=== PATIENT | female | born 1995 | race Caucasian/White ===

== ENCOUNTER 2023-06-23 16:35 | Emergency (ER) | payer BC, SELFPAY ==
--- NOTE | ~2023-06-23 | XR_ITS ---
EXAMINATION: XR chest 2V DATE: 06/23/2023 17:02 INDICATION: Cough TECHNIQUE: PA and lateral views of the chest were obtained. COMPARISON: None FINDINGS: The lungs are clear with no focal airspace opacities, pulmonary edema, pleural effusion or pneumothor ax. The cardiomediastinal silhouette is normal. Visualized bones and soft tissues are unremarkable. IMPRESSION: 1. No acute cardiopulmonary disease. Reviewed, dictated and finalized at location A. COUNTER [employer] WRAPPER
--- NOTE | 2023-06-23 16:45 | ED.URI ---
HPI - URI/Sore Throat General Chief Complaint: Upper Respiratory Infection Stated Complaint: Cough/Fever Time Seen by Provider: 06/23/23 16:50 Source: patient Mode of arrival: ambulatory Limitations: no limitations History of Present Illness HPI Narrative: Alicia is a 28-year-old female patient presenting to the clinic today with complaints coughing and congestion for 1 week. Reports she is coughing up some green phlegm. States she felt somewhat feverish yesterday. Denies any chest pain but does have some mild shortness of breath. She is currently . MD elicited complaint: cough and nasal congestion Related Data Home Medications Medication Instructions Recorded Confirmed etonogestrel 0.12 mg-ethinyl vag ring vaginal 06/23/23 estradiol 0.015 mg/24 hr vaginal ring (EluRyng) Allergies Allergy/AdvReac Type Severity Reaction Status Date / Time naproxen Allergy Unknown Rash Verified 06/23/23 16:38 Penicillins Allergy Hives Verified 06/23/23 16:38 Review of Systems Review of Systems: Pertinent positives per HPI. Patient denies any fever, chills, rash, headache, visual changes, dizziness, shortness of breath, chest pain, palpitations, nausea, vomiting, diarrhea, constipation, abdominal pain, or any urinary issues. [facility] Past Medical History Medical History Asthma Depression Headache Migraine Nausea and vomiting in adult Psychiatric disorder Social History Social History Smoking status: Never smoker Gender identity (if verbalized by the patient): Female Comments At the time of my signature, I reviewed and agree with the nursing past medical, surgical, social, and family history. There is no relevant family history pertinent to the patient complaint. Exam Narrative: General: Well-developed, well nourished, in no apparent distress Head: Normocephalic, atraumatic Eyes: Pupils equally round and reactive to light bilaterally, EOM intact, sclera and conjunctive clear, no discharge, lids normal Ears: TMs intact and clear, ear canals clear, no drainage, grossly hearing normal. Nose: Nares patent, clear nasal discharge, mild inflammation, no sinus tenderness. Mouth: Oral pharynx without lesions or masses, good dentition, MMM. Neck: Supple, trachea midline, no enlargement of anterior or posterior cervical nodes, no thyroid masses or goiter palpable. Cardio: Regular rate and rhythm, s1 and s2 normal, no murmur appreciated. Resp: Clear to auscultation bilaterally, no rhonchi, rales, wheezing or rubs Course Course Emergency Course: Portions of this record may have been created with voice recognition software. Level of Care: Express Care Visit Vital Signs Vital signs: Vital signs reviewed MDM - URI/Sore Throat MDM Narrative Medical decision making narrative: At the time of visit patient is resting comfortably on the exam table. Patient appears to be nontoxic. Diagnostics: Chest x-rays negative for any acute cardiopulmonary process. Plan: I suspect patient has URI with cough and congestion. Prescription for prednisone was sent to the pharmacy. Supportive measures were discussed with the patient and they voiced understanding discharge instructions and agrees to treatment plan. Return precautions reviewed Differential Diagnosis Differential diagnosis: Likely upper respiratory infection, otitis media, sinusitis, viral infection, bronchitis, influenza, pharyngitis and other (COVID) Discharge Plan Discharge Clinical Impression: Upper respiratory infection with cough and congestion Patient Disposition: Home, Self-Care Condition: Stable Instructions: Antibiotic Form, Upper Respiratory Infection (ED) Additional Instructions: Chest x-rays negative for any sign pneumonia. Increase fluids and stay well hydrated Tylenol/motrin for pain/fever Dario
[2023-06-23 16:47] VITALS: BP 148/108; PULSE 101; RESP 18; TEMP 37.1; O2SAT 100
== END 2023-06-23 17:20 | disposition home or self-care (01) ==
PROVIDERS: Emergency Provider Nurse Practitioner Family; PCP Family Medicine
DX: J06.9 Acute upper respiratory infection, unspecified (principal); J45.909 Unspecified asthma, uncomplicated
CPT/HCPCS: 71046; 99213; G0463

== ENCOUNTER 2024-04-28 10:32 | Emergency (ER) | payer OTHER, SELFPAY ==
--- NOTE | ~2024-04-28 | XR_ITS ---
EXAMINATION: XR chest 2V DATE: 04/28/2024 11:08 INDICATION: Cough and fever. TECHNIQUE: Frontal and lateral views of the chest were obtained. COMPARISON: Chest 06/23/23 FINDINGS: There are airspace opacities in right lower lobe, consistent with pneumonia. No pleural eff usion or pneumothorax. The heart size is normal. IMPRESSION: 1. Right lower lobe pneumonia. Reviewed, dictated and finalized at location A. L DIE ENGRAVER
--- NOTE | 2024-04-28 10:39 | ED_ITS ---
HPI - General Adult General Chief complaint: Upper Respiratory Infection Stated complaint: Cough/Vomiting Time Seen by Provider: 04/28/24 10:46 Source: patient, RN notes reviewed and old records reviewed Mode of arrival: ambulatory Limitations: no limitations History of Present Illness HPI narrative: 29-year-old female presents to the [facility] with complaints of a cough. Patient states she has had runny nose, cough for 2-3 weeks, was feeling much better last , Monday started feeling feverish, worsening cough. Reports green productive cough. Related Data Home Medications Medication Instructions Recorded Confirmed Control 1 tab-cap PO DAILY 04/28/24 04/28/24 Allergies Allergy/AdvReac Type Severity Reaction Status Date / Time naproxen Allergy Unknown Rash Verified 04/28/24 10:42 Penicillins Allergy Hives Verified 04/28/24 10:42 Review of Systems Review of Systems: All systems reviewed & are unremarkable except as noted in HPI and below Constitutional: Constitutional: Reports as per HPI, Reports body ache(s), Reports chills and Reports fever(s) ENT: Reports system reviewed and no additional complaints, except as docume nted Cardiovascular: Cardiovascular: Reports no additional cardiovascular complaints, Denies chest pain and Denies dyspnea Respiratory: Respiratory: Reports as per HPI, Reports chest congestion, Reports cough and Denies dyspnea Gastrointestinal: Gastrointestinal: Reports no additional gastrointestinal complaints, Denies abdominal pain, Denies nausea and Denies vomiting Musculoskeletal: Musculoskeletal: Reports no additional musculoskeletal complaints Integumentary/Breasts: Skin/Breast: Reports system reviewed and no additional complaints, except as docu PMFSH Past Medical History Medical History Asthma Depression Headache Migraine Nausea and vomiting in adult Psychiatric disorder Social History Social History Smoking status: Never smoker Gender identity (if verbalized by the patient): Female Comments At the time of my signature, I reviewed and agree with the nursing past medical, surgical, social, and family history. There is no relevant family history pertinent to the patient complaint. Exam Const: General: cooperative, no acute distress, well developed, alert, poor hygiene, tired appearing, uncomfortable and well nourished Nutritional Appearance: well nourished and obese Orientation/consciousness: patient oriented x3 Limitations: no limitations HENMT: Head: normal to inspection Ears: hearing grossly normal bilaterally and external ears normal Face/Nose/Sinus: Normal external nose present, normal facial exam and face symmetric Face and sinus: normal facial exam and face symmetric Mouth: Yes Normal oral and palatal mucosa present, Yes lip normal and Yes tongue normal Throat: posterior oropharynx normal, uvula midline and no uvular edema Eyes: General: appearance normal, both eyes and all related structures Alignment and Position: alignment normal Periorbital: periorbital findings normal Neck: Neck: normal visual inspection, full ROM, no lymphadenopathy and no meningeal signs Chest: Chest palpation & inspection: normal inspection of the chest Resp: Effort & Inspection: normal respiratory effort and able to speak in complete sentences Auscultation: no crackles, no rales, no rhonchi and wheezes right lower Cardio: Rate: regular rate Skin: General skin exam: normal color and no rashes or lesions noted Lesions: no lesions Rashes: no rashes Wounds: no wounds Neuro: General: patient oriented x3, gait normal, tone normal, moves all extremities and no meningeal signs Cognition (Neuro): normal cognition Speech: normal speech Gait exam (Neuro): Normal gait present Extrem: General: normal to inspection, full ROM, capillary refill normal and normal gait Psych: Appearance: grossly normal and well kempt Mental Status: mental status grossly normal Speech and movement: Normal speech and movement present and Clear speech present Affect: normal affect Attitude: cooperative Course Course Level of Care: Express Care Visit Vital Signs Vital signs: Vital Signs Temperature 100.1 F H 04/28/24 10:43 Pulse Rate 114 H 04/28/24 10:43 Respiratory Rate 19 04/28/24 10:43 Blood Pressure 121/79 04/28/24 10:43 Pulse Oximetry 97 04/28/24 10:43 Oxygen Delivery Room Air 04/28/24 10:43 Temperature 100.1 F H 04/28/24 10:43 Pulse Rate 114 H 04/28/24 10:43 Respiratory Rate 19 04/28/24 10:43 Blood Pressure 121/79 04/28/24 10:43 Pulse Oximetry 97 04/28/24 10:43 Oxygen Delivery Room Air 04/28/24 10:43 Reviewed Medical Decision Making MDM Narrative Medical decision making narrative: Patient sitting comfortably in exam room. Nontoxic, vitals stable. Patient in no acute distress Patient presents for cough congestion, fevers Patient's x-ray showed right lower lobe pneumonia. Patient is appropriate for outpatient treatment and follow-up Discharge instructions reviewed with patient, as well as provided in writing per nursing staff. The instructions also include specific and strict return/GO TO THE ER as well as f/u information. All questions have been answered, and the patient deny any further questions with discharge and discharge plan. Some parts of this dictation were generated by voice recognition software and may contain typographical and/or grammatical inaccuracies. Differential Diagnosis Differential Diagnosis: Pneumonia, URI, flu, COVID Medical Records Medical records reviewed: Yes I reviewed the external patient's medical records. Vital Signs Vital Signs: Vital Signs Temperature 100.1 F H 04/28/24 10:43 Pulse Rate 114 H 04/28/24 10:43 Respiratory Rate 19 04/28/24 10:43 Blood Pressure 121/79 04/28/24 10:43 Pulse Oximetry 97 04/28/24 10:43 Oxygen Delivery Room Air 04/28/24 10:43 Temperature 100.1 F H 04/28/24 10:43 Pulse Rate 114 H 04/28/24 10:43 Respiratory Rate 19 04/28/24 10:43 Blood Pressure 121/79 04/28/24 10:43 Pulse Oximetry 97 04/28/24 10:43 Oxygen Delivery Room Air 04/28/24 10:43 Reviewed Lab Data Lab results reviewed: Yes I reviewed the patient's lab results. Labs: Lab Results 04/28/24 Range/Units 11:04 POC Influenza A Ag Negative (Negative) POC Influenza B Ag Negative (Negative) POC SARS CoV-2 Ag Negative (Negative) Reviewed Imaging Data Radiologist's impression: EXAMINATION: XR chest 2V DATE: 04/28/2024 11:08 INDICATION: Cough and fever. TECHNIQUE: Frontal and lateral views of the chest were obtained. COMPARISON: Chest 06/23/23 FINDINGS: There are airspace opacities in right lower lobe, consistent with pneumonia. No pleural effusion or pneumothorax. The heart size is normal. IMPRESSION: 1. Right lower lobe pneumonia. Critical Care Time Critical Care Time Critical Care Time: No Discharge Plan Discharge Clinical Impression: Right lower lobe pneumonia Qualifiers: Pneumonia type: due to unspecified organism Qualified Code(s): J18.9 - Pneumonia, unspecified organism Patient Disposition: Home, Self-Care Condition: Stable Instructions: Antibiotic Form, Pneumonia (ED) Additional Instructions: Your rapid COVID test were negative Your rapid flu test was negative Your symptoms are due to a right lower lobe pneumonia, It is very important to treat your symptoms. Drink Plenty of water, Gatorade, Pedialyte, ice pops or Jell-O. It is important that you take 10 deep breaths per hour while awake. -Alternate Tylenol and Motrin per package directions for fever or pain. You can alternate every 4 hours -Antihistamine medication such as Benadryl at night and Zyrtec/Claritin/Faviola during the day can help improve symptoms. -doing daily nasal irrigations can help relieve pressure your sinuses. Things like a Neti pot -Use Flonase twice a day for 5 days then daily to help reduce the inflammation and dry up your sinuses. -You can also use Mucinex. Be sure to drink plenty of water with this medication at least 8 ounces with every dose and it is important to drink 8 to 10 glasses of water per day. Water is a natural decongestant -Frequent hand washing or hand office services coordinator is one of the best ways to prevent spread of infection. -Using a vaporizer or humidifier at night will also help thin secretions and help with coughing up phlegm. -Follow up with primary care provider in 7-10 days if condition is not improving - For new or worsening symptoms go directly to the nearest ER Patient Language: Greek Prescriptions: New albuterol sulfate 90 mcg/actuation HFA aerosol inhaler 2 puff inhalation QID PRN (Reason: shortness of breath or wheezing) Qty: 6.7 0RF (DME) Aerochamber MV Spacer See Rx Instructions .Route Qty: 1 0RF Rx Instructions: As directed doxycycline monohydrate 100 mg tablet 100 mg PO BID Qty: 14 0RF No Action Control 1 tab-cap PO DAILY Follow-up/Referrals: Santa,Gerry Peterson MD [Primary Care Provider] - 2 Weeks ([facility] follow-up) Stand Alone Forms: Work/School Release IP Time of Disposition: 11:17
[2024-04-28 10:43] VITALS: BP 121/79; PULSE 114; RESP 19; TEMP 37.8; O2SAT 97
[2024-04-28 11:25] LABS: EDCOVIDSCREEN Negative (Negative); EDINFLUASCREEN Negative (Negative); EDINFLUBSCREEN Negative (Negative)
== END 2024-04-28 11:25 | disposition home or self-care (01) ==
PROVIDERS: Emergency Provider Nurse Practitioner; PCP Family Medicine
DX: J18.1 Lobar pneumonia, unspecified organism (principal); Z20.822 Contact with and (suspected) exposure to COVID-19; J45.909 Unspecified asthma, uncomplicated
CPT/HCPCS: 71046; 87426; 87804; 99213; G0463